=== PATIENT | female | born 1980 | race Hispanic/Latino ===

== ENCOUNTER 2024-01-10 06:42 | Day surgery (SDC) | payer OTHER ==
[~2024-01-10] VITALS: Ht 144.8 cm; Wt 67.6 kg
[~2024-01-10 06:42] MED LIST: NEURONTIN100 MG PO; TRAMADOL HCL50 MG PO
[2024-01-10] MEDS ORDERED: SODIUM CHLORIDE 0.9% 10 ML SYR ONE ×2 (06:50→07:57)
[2024-01-10] MEDS ORDERED: ELIQUIS2.5 MG PO (06:58)
[2024-01-10] MEDS ORDERED: LIDOCAINE HCL 1% (10MG/ML) 100 MG/10 ML MDV ONE (07:42)
[2024-01-10] MEDS ORDERED: BUPIVACAINE HCL PF 0.5 % 50 MG/10 ML SDV ONE (07:42)
[2024-01-10] MEDS ORDERED: TRIAMCINOLONE ACETONIDE 40 MG/ML ML ONE (07:42)
[2024-01-10] MEDS ORDERED: MIDAZOLAM HCL 2 MG/2 ML VIAL ONE (07:44)
[2024-01-10 09:43] VITALS: BP 109/66
== END 2024-01-10 08:30 | disposition home or self-care (01) ==
LOC: ORM 06:42
PROVIDERS: ATTEND Student in an Organized Health Care Education/Training Program
DX: M54.9 Dorsalgia, unspecified (principal); M79.18 Myalgia, other site; M54.89 Other dorsalgia; G89.4 Chronic pain syndrome; M54.12 Radiculopathy, cervical region
CPT/HCPCS: J3301